=== PATIENT | female | born 1935 | race African-American/Black ===

== ENCOUNTER 2024-06-18 19:15 | Inpatient (IN) | payer MEDICARE, OTHER ==
[~2024-06-18] VITALS: Ht 167.6 cm; Wt 67.8 kg
[~2024-06-18 19:15] MED LIST: AMLO5TAB88 PO; ATEN50TA PO; GLIP10TA10 PO; LOSA100T33 PO; LOVA40TA73 PO
[2024-06-18 20:07] LABS: BASOPHILS % 0.2 % (0.0-2.0); EOSINOPHILS % 0.2 % (0.0-5.0); HEMATOCRIT. 31.1 % (36.0-48.0); HEMOGLOBIN. 9.8 g/dL (12.0-16.0); LYMPHOCYTES % 12.8 % (20.0-50.0); MEAN CORPUSCULAR HEMOGLOBIN 26.2 pg (28.0-32.0); MEAN CORPUSCULAR HGB CONC 31.5 g/dL (31.0-37.0); MEAN CORPUSCULAR VOLUME 83.2 fL (81.0-99.0); MEAN PLATELET VOLUME 8.8 fl (7.4-10.4); MONOCYTES % 9.3 % (2.0-8.0); NEUTROPHILS % 77.5 % (40.0-76.0); PLATELET 290 x1000/uL (130-400); RED BLOOD CELL COUNT 3.73 mill/uL (4.2-5.4); RED CELL DISTRIBUTION WIDTH 16.7 % (11.6-14.6); WHITE BLOOD COUNT 9.5 x1000/uL (4.5-11.0)
[2024-06-18 20:13] LABS: CHLORIDE 99 mEq/L (98-107); POTASSIUM 4.3 mEq/L (3.5-5.1); SODIUM 135 mEq/L (136-145)
[2024-06-18 20:14] LABS: CARBON DIOXIDE 33 mEq/L (21-32)
[2024-06-18 20:15] LABS: CALCIUM 9.2 mg/dL (8.7-10.4)
[2024-06-18 20:19] LABS: GLUCOSE 316 mg/dL (70-105); UREA NITROGEN BLOOD 29 mg/dL (9-23)
[2024-06-18 20:27] LABS: BG BASE EXCESS 6.9 mmol/L (-2.0-3.0); BG CARBOXYHEMOGLOBIN 0.4 % (0.5-1.5); BG DEOXYHEMOGLOBIN 6.1 % (0.0-5.0); BG FRACTION INSPIRED OXYGEN 28; BG HCO3 ACT 30.2 mmol/L (21.0-28.0); BG METHEMOGLOBIN 0.3 % (0.5-1.5); BG OXYGEN SATURATION 93.9 % (94.0-98.0); BG OXYHEMOGLOBIN 93.2 % (94.0-98.0); BG PH 7.518 (7.350-7.450); BG PO2 68.5 mmHg (83.0-108.0); BG SAMPLE SITE RIGHT BRACHIAL; BG VENT MODE NASAL CANNULA
[2024-06-18 20:29] LABS: TROPONIN I HIGH SENSITIVITY 43 ng/L (3.0-34)
[2024-06-18] MEDS: ASPIRIN 325MG EC TABLET PO ONE (21:57)
[2024-06-18] MEDS: FUROSEMIDE 40MG/4ML VIAL IVP ONE (21:57)
[2024-06-18 23:55] VITALS: BP 110/75; PULSE 67; RESP 22; TEMP 36.78072; O2SAT 99
[2024-06-19] VITALS (7 sets, daily range): BP systolic 129–138; BP diastolic 62–65; PULSE 66–88; RESP 18–25; TEMP 36.83628–36.9184; O2SAT 97–100
[2024-06-19] MEDS ORDERED: ONDANSETRON HCL 4MG/2ML INJ IV PRN
[2024-06-19] MEDS ORDERED: MAGNESIUM/ALUMINUM HYDROXIDE/SIMETHICONE 30ML UDC PO PRN
[2024-06-19] MEDS ORDERED: GUAIFENESIN 200MG/10ML SUGAR FREE UDC PO PRN
[2024-06-19] MEDS ORDERED: CLONIDINE 0.1MG TABLET PO PRN
[2024-06-19] MEDS ORDERED: DOCUSATE SODIUM 100MG CAPSULE PO PRN
[2024-06-19] MEDS ORDERED: IPRATROPIUM/ALBUTEROL 0.5-3(2.5)MG/3ML NEB HHN PRN
[2024-06-19] MEDS ORDERED: ACETAMINOPHEN 325MG TABLET PO PRN
[2024-06-19 00:03] LABS: TROPONIN I HIGH SENSITIVITY 40 ng/L (3.0-34)
[2024-06-19] MEDS: IPRATROPIUM/ALBUTEROL 0.5-3(2.5)MG/3ML NEB HHN SCH (00:14)
[2024-06-19] MEDS ORDERED: DEXTROSE 50% WATER 50ML SYRINGE IV PRN (00:45)
[2024-06-19] MEDS: INSULIN LISPRO 100 UNITS/ML SUBCUT SCH (07:15)
[2024-06-19] MEDS: BLOOD SUGAR DIAGNOSTIC STRIP TEST SCH (07:25)
[2024-06-19 08:35] LABS: CARBON DIOXIDE 34 mEq/L (21-32); CHLORIDE 103 mEq/L (98-107); POTASSIUM 3.8 mEq/L (3.5-5.1); SODIUM 140 mEq/L (136-145)
[2024-06-19 08:36] LABS: CALCIUM 9.1 mg/dL (8.7-10.4)
[2024-06-19 08:37] LABS: IRON 29 ug/dL (50-170)
[2024-06-19 08:40] LABS: TOTAL IRON BINDING CAPACITY 268 ug/dl (250-425)
[2024-06-19 08:41] LABS: CREATININE 0.9 mg/dL (0.6-1.0); GLUCOSE 316 mg/dL (70-105); TRIGLYCERIDE 38 mg/dL (0-150); UREA NITROGEN BLOOD 28 mg/dL (9-23)
[2024-06-19 08:42] LABS: LDL CHOLESTEROL 38 mg/dL (5-100)
[2024-06-19 08:43] LABS: CHOLESTEROL 94 mg/dL (<200); HDL CHOLESTEROL 44 mg/dL (>65); T4 FREE 0.97 ng/dL (0.89-1.76)
[2024-06-19 08:44] LABS: THYROID STIMULATING HORMONE 5.62 uIU/mL (0.55-4.78)
[2024-06-19] MEDS: FUROSEMIDE 40MG/4ML VIAL IV SCH (09:03)
[2024-06-19 09:05] LABS: FERRITIN 41 ng/mL (10-291); FOLIC ACID (FOLATE) SERUM 18.29 ng/mL (>5.38); VITAMIN B12 SERUM 609 pg/mL (211-911)
[2024-06-19 09:30] LABS: BASOPHILS % 0.3 % (0.0-2.0); EOSINOPHILS % 0.3 % (0.0-5.0); HEMATOCRIT. 28.1 % (36.0-48.0); HEMOGLOBIN. 8.7 g/dL (12.0-16.0); LYMPHOCYTES % 16.2 % (20.0-50.0); MEAN CORPUSCULAR HEMOGLOBIN 25.8 pg (28.0-32.0); MEAN CORPUSCULAR HGB CONC 30.8 g/dL (31.0-37.0); MEAN CORPUSCULAR VOLUME 83.7 fL (81.0-99.0); MEAN PLATELET VOLUME 8.9 fl (7.4-10.4); MONOCYTES % 11.5 % (2.0-8.0); NEUTROPHILS % 71.7 % (40.0-76.0); PLATELET 230 x1000/uL (130-400); RED BLOOD CELL COUNT 3.36 mill/uL (4.2-5.4); RED CELL DISTRIBUTION WIDTH 16.4 % (11.6-14.6); WHITE BLOOD COUNT 7.6 x1000/uL (4.5-11.0)
[2024-06-19] MEDS: AMLODIPINE 5MG TABLET PO SCH (10:45)
[2024-06-19] MEDS: ENOXAPARIN 80MG/0.8ML SYR SUBCUT NR (21:59)
[2024-06-19] MEDS: FAMOTIDINE 20MG TABLET PO SCH (21:59)
[2024-06-20] MEDS ORDERED: ENOXAPARIN 80MG/0.8ML SYR SUBCUT SCH (09:00)
[2024-06-20] MEDS ORDERED: INSULIN GLARGINE 100 UNITS/ML SUBCUT SCH (10:00)
== END 2024-06-19 22:47 | disposition home or self-care (01) | DRG 280 ==
LOC: ER 19:15 → 5WST 23:16 → EDBEDREQTM 23:23 → EDBEDREQ 23:23 → 3WST 06-19 19:37
PROVIDERS: ADMIT Internal Medicine; ATTEND Internal Medicine
PROC: 5A09357 Assistance with Respiratory Ventilation, Less than 24 Consecutive Hours, Continuous Positive Airway Pressure (ICD-10-PCS; principal; 2024-06-18)
DX: I11.0 Hypertensive heart disease with heart failure (principal); J96.01 Acute respiratory failure with hypoxia; I21.A1 Myocardial infarction type 2; J84.9 Interstitial pulmonary disease, unspecified; I50.9 Heart failure, unspecified; E11.65 Type 2 diabetes mellitus with hyperglycemia; E78.5 Hyperlipidemia, unspecified; H91.10 Presbycusis, unspecified ear; D63.8 Anemia in other chronic diseases classified elsewhere; G35 Multiple sclerosis; J98.4 Other disorders of lung; I95.9 Hypotension, unspecified; Z79.4 Long term (current) use of insulin; Z79.84 Long term (current) use of oral hypoglycemic drugs; Z79.899 Other long term (current) drug therapy
CPT/HCPCS: 36415; 36600; 71045; 80048; 80061; 82375; 82607; 82728; 82746; 82805; 82962; 83036; 83540; 83550; 83605; 83880; 83930; 84439; 84443; 84484; 85025; 85379; 86850; 86900; 92610; 93970; 94640; 99285; J1650; J1815; J1940